=== PATIENT | female | born 1985 | race Caucasian/White ===

== ENCOUNTER → 2020-08-22 15:35 | Outpatient (CLI) | payer OTHER, SELFPAY ==
--- NOTE | 2020-08-22 | DI.CT.S_ITS ---
PROCEDURE: CT SINUS SCREEN WO CON INDICATIONS: CHRONIC PANSINUSITIS TECHNIQUE: Noncontrast 3.0 mm axial images acquired from the frontal sinuses to the mid-sella, with coronal and sagittal reformats. For radiation dose reduction, the following was used: automated exposure control, adjustment of mA and/or kV according to patient size. COMPARISON: None. FINDINGS: Image quality: Excellent. Maxillary Sinuses: No bony remodeling or destruction. Sinuses are clear. Ethmoid Air Cells: No bony remodeling or destruction. Sinuses are clear. Sphenoid Sinuses: No bony remodeling or destruction. Sinuses are clear. Frontal Sinuses: No bony remodeling or destruction. Sinuses are clear. Ostiomeatal Complexes: Ostiomeatal complexes are patent, yet there constitutionally narrowed. [place] air cells are seen, left worse than right. Miscellaneous: Visualized intra-orbital contents are normal. There are bilateral anuj bullosa is seen. There is mild to moderate rightward nasal septal deviation. IMPRESSION: No significant active paranasal sinus disease can be seen. Constitutionally narrowed ostiomeatal complexes, with [place] air cells, left worse than right. Bilateral anuj bullosa can be seen. There is mild to moderate rightward nasal septal deviation. Dictated by: Asad Yanez M.D. on 08/22/2020 at 15:15 Approved by: Asad Yanez M.D. on 08/22/2020 at 15:16
== END ==
PROVIDERS: Referring Provider Otolaryngology; Visit Provider Otolaryngology
DX: J32.4 Chronic pansinusitis (principal); J34.2 Deviated nasal septum
CPT/HCPCS: 70486

== ENCOUNTER 2021-04-06 14:38 | Emergency (ER) | payer OTHER, SELFPAY ==
[2021-04-06 14:45] VITALS: BP 124/72; PULSE 97; RESP 18; TEMP 36.8; O2SAT 100; BMI 21.9
--- NOTE | 2021-04-06 14:51 | ED.URI ---
HPI - URI/Sore Throat General Chief Complaint: Chest Pain Stated Complaint: covid+; chest pain, productive cough-yellow/blood Time Seen by Provider: 04/06/21 14:43 History of Present Illness HPI Narrative: 36-year-old female presents to the emergency department with known COVID infection after testing positive 2 days ago complaining of productive cough, pain with deep inspiration, tingling in total and muscle aches. She denies any history of blood clot, states that she is unvaccinated for COVID and develop symptoms last week. She denies fever but endorses frequent cough. States that she had some yellow sputum with streaks of blood in after a coughing episode. She denies any chance of . Denies any wheezing, difficulty breathing, difficulty taking full breath, chest tightness, syncope, dizziness, dehydration, nausea vomiting, diarrhea. Patient has a history of asthma, states she used her nebulizer this morning and it helped, is allergic to amoxicillin, takes sertraline, albuterol, Singulair, and Adderall daily. Related Data Previous Rx's Medication Instructions Recorded albuterol sulfate 2.5 mg (3 mL) INHALATION Q8H PRN 04/06/21 #75 ml Review of Systems Review of Systems Narrative: General: denies fever, chills, malaise, sweats, fatigue Head/Neck: denies headache, neck pain, dizziness Eyes: denies visual changes, eye pain Cardio: Endorses chest pain with deep inspiration, denies palpitations, edema Respiratory: denies dyspnea, endorses frequent occasionally productive cough, denies orthopnea and wheezing GI: denies abdominal pain, nausea, vomiting, or diarrhea : denies dysuria, hematuria, urinary retention, frequency or incontinence MSK: denies joint pain, muscle weakness Skin: denies rash, itching, skin lesions or other Neuro: denies numbness, tingling Patient History Social History Smoking Status: Never smoker Exam Narrative Exam Narrative: Independently reviewed vitals signs and nursing notes. General: Cooperative, comfortable, in no acute distress, well developed and well groomed Head/Neck: Normal visual inspection and supple, atraumatic, no JVD or lymphadenopathy. Normal facial exam Eyes: Pupils equal round and reactive, EOMI, conjunctiva normal, no scleral icterus or injections Nose: External nose normal, nares patent, no rhinorrhea, without purulent drainage Mouth/Throat: uvula midline, moist mucus membranes Cardio: Regular rate and rhythm, no peripheral edema, warm extremities Respiratory: Normal respiratory effort, able to speak in complete sentences without audible wheezing, stridor, or rales. No retractions. No adventitious breath sounds, equal excursions. GI: Abdomen soft, nontender to palpation x4 quadrants, nondistended, no masses or exquisite tenderness with exam, no flank tenderness MSK: Moves all extremities, neurovascularly intact Skin: Normal capillary refill, no rash Neuro: Normal speech and cognition, normal gait, A&O x3, tone normal, moves all extremities Psych: Mental status is grossly normal, speech is clear, congruent mood, normal affect Initial Vital Signs Initial Vital Signs: Vital Signs Temperature 98.2 F 04/06/21 14:45 Pulse Rate 97 H 04/06/21 14:45 Respiratory Rate 18 04/06/21 14:45 Blood Pressure 124/72 04/06/21 14:45 Pulse Oximetry 100 04/06/21 14:45 Course Orders Ordered: ED Orders 04/06/21 14:54 XR chest 1V Stat 04/06/21 14:56 EKG-12 Lead Stat Vital Signs Vital signs: Vital Signs - 8 hr 04/06/21 14:45 Temperature 98.2 F Pulse Rate 97 H Respiratory Rate 18 Blood Pressure 124/72 Pulse Oximetry 100 MDM - URI/Sore Throat Imaging Data Chest x-ray: Radiologist's Impression: PROCEDURE:? XR CHEST 1V ? INDICATIONS:? COVID, cough, hx asthma ? TECHNIQUE:? One view of the chest was acquired.? ? COMPARISON:? None. ? FINDINGS:? ? Surgical changes and devices:? None.? ? Lungs and pleura:? Lungs are clear.? No pleural effusions or pneumothorax.? ? Mediastinum:? Mediastinal contours appear normal.? Heart size is normal.? ? Bones and chest wall:? No suspicious bony lesions.? Overlying soft tissues appear unremarkable.? IMPRESSION:? No definite infiltrates are seen.? ? If there is clinical concern for a developing pulmonary process, a short-term followup chest series (with PA and lateral views, performed in deep inspiration) is suggested for further evaluation. ? ? ? Dictated by: Asad Yanez M.D. on 04/06/2021 at 14:13 ? ? Approved by: Asad Yanez M.D. on 04/06/2021 at 14:13 ? ECG Data Interpretation: EKG reviewed by myself and Dr. Prachi Khalil and reveals normal sinus rhythm at [77] bpm with regular axis and intervals. No STEMI, ST segment changes, arrhythmia, or acute ischemic changes. Normal axis, no ectopy. MDM Narrative Medical decision making narrative: 36-year-old female with past medical history of asthma presents to the emergency department with chief complaint of COVID infection and cough with chest pain during deep inspiration. Patient tested positive for COVID 2 days ago, she is unvaccinated. COVID (+) on day 3 of symptoms without hypoxia, respiratory distress, dehydration, or focal exam to suggest secondary bacterial infection. Discussed CDC guidelines for quarantine, mask wearing, physical distancing, and infection prevention measures such as frequent handwashing. Chest x-ray without any definite pulmonary infiltrates, lungs are clear without effusions or pneumothorax. EKG normal sinus rhythm without ectopy or tachycardia, no ST changes, or [id number] to suggest pulmonary embolism. Recommend supportive treatments: Tylenol/Motrin as needed for pain/fever. OTC decongestant medications and/or antihistamines for symptomatic relief. Maintain adequate fluid intake. Follow-up with PCP as directed. Return to clinic/ER instructions discussed for new, not improving, or worsening symptoms. All questions answered. Discharge Plan Departure Patient Disposition: Home Clinical Impression: COVID-19 Instructions: DI for Atypical Chest Pain, DI for COVID-19 (Suspected or Confirmed ) Activity Restrictions/Additional Instructions: *You have been diagnosed with COVID-19. Please continue to take your Singulair and albuterol as needed for your asthma symptoms. Albuterol does not have any benefit to COVID so please only use it if you have chest tightness or shortness of breath related to asthma. You may take Claritin daily if you have a runny nose, Mucinex can be helpful to thin phlegm to make it easier to cough up, take hot showers to help with muscle aches, stay hydrated with plenty of fluids, you can try fluticasone for Sudafed decongestant to reduce your congestion if that is a problem for you. That may in turn help reduce your cough and any postnasal drip that will turn into phlegm. Please use Tylenol or ibuprofen as needed for pain, aches and fever. Your chest x-ray is reassuring, there are no signs of a bacterial or viral pneumonia or acute cardiopulmonary process. Your oxygen was 100% throughout your stay, and your heart rate is normal which is also reassuring Please follow-up with your primary care provider after you're better or if you are not improving. I hope you start feeling better soon, treat your symptoms as they come, you may need to increase your rest to help yourself get better. Wishing you luck with your small children. *What to do: *Please continue to take your regular medications as directed. [x] New medication prescriptions sent to your pharmacy: [[facility] ] [ ] New medication written as a paper prescription [ ] No new medications given *Please follow up with your primary care provider in 2-3 days, call for an appointment. Let them know you were seen in the Emergency Department and that we ask that you be seen in follow up. We will electronically transmit a record of today's note if your PCP is in our system *If you do not have a primary care provider please contact the [facility] Resource line at [phone]. They will ask some questions about your medical history and help get you set up with a doctor in the community. *Return to Emergency Department if you should have any new, worsening or concerning symptoms, such as [fever greater than 101F, chills, worsening pain, persistent vomiting or other bothersome symptoms] Prescriptions: New albuterol sulfate 2.5 mg /3 mL (0.083 %) solution for nebulization 2.5 mg inhalation Q8H PRN (Reason: shortness of breath or wheezing) Qty: 75 0RF Referrals: Meng Sears DO [Primary Care Provider] -
--- NOTE | 2021-04-06 14:54 | DI.RAD.S_ITS ---
PROCEDURE: XR CHEST 1V INDICATIONS: COVID, cough, hx asthma TECHNIQUE: One view of the chest was acquired. COMPARISON: None. FINDINGS: Surgical changes and devices: None. Lungs and pleura: Lungs are clear. No pleural effusions or pneumothorax. Mediastinum: Mediastinal contours appear normal. Heart size is normal. Bones and chest wall: No suspicious bony lesions. Overlying soft tissues appear unremarkable. IMPRESSION: No definite infiltrates are seen. If there is clinical concern for a developing pulmonary process, a short-term followup chest series (with PA and lateral views, performed in deep inspiration) is suggested for further evaluation. Dictated by: Asad Yanez M.D. on 04/06/2021 at 14:13 Approved by: Asad Yanez M.D. on 04/06/2021 at 14:13
[2021-04-06 15:42] VITALS: BP 105/67; PULSE 78; RESP 18; O2SAT 100
== END 2021-04-06 15:43 | disposition home or self-care (01) ==
PROVIDERS: Emergency Provider Nurse Practitioner Critical Care Medicine; PCP Family Medicine
DX: U07.1 COVID-19 (principal); R07.9 Chest pain, unspecified
CPT/HCPCS: 71045; 93005; 99283

== ENCOUNTER 2022-03-16 15:01 | Emergency (ER) | payer OTHER, SELFPAY ==
[2022-03-16 15:09] VITALS: BP 106/79; PULSE 96; RESP 20; TEMP 37; O2SAT 100; BMI 21.5
[2022-03-16 16:10] VITALS: BP 113/70; PULSE 86; RESP 18; O2SAT 100
--- NOTE | 2022-03-16 16:15 | ED.GENADULT ---
HPI - General Adult General Chief complaint: Dizziness Stated complaint: Vertigo/Pain Left Side Time Seen by Provider: 03/16/22 15:39 Source: patient Mode of arrival: Ambulatory Limitations: no limitations History of Present Illness HPI narrative: Patient is a 36-year-old female who has been having issues with vertigo off and on for the past several months. She is seen her primary doctor. She also has a history of migraine headaches. She has talked with her neurologist about the vertigo and also the migraines. She has muscle relaxers at home that the neurologist thought maybe contributing to his symptoms because her headache seen at the base of her head. She also talked with the primary doctor. Last week she went to her primary doctor. Had a OMT adjustment by her primary doctor. Since that time she has had some pain left side of her neck and also continued vertigo. She does have fullness in her ears. She also has a slight headache. Has some tingling down her left arm. No chest pain. No shortness of breath. No vision changes. Not on anticoagulation. No specific trauma. Does not take any specific vertigo medications. Related Data Previous Rx's Medication Instructions Recorded albuterol sulfate 2.5 mg/3 mL 2.5 mg (3 mL) inhalation Q8H PRN 04/06/21 (0.083 %) solution for nebulization shortness of breath or wheezing #75 mL cyclobenzaprine 10 mg tablet 10 mg PO TID PRN muscle spasm #21 03/16/22 tabs meclizine 25 mg tablet 25 mg PO BID PRN dizziness #14 tabs 03/16/22 Allergies Allergy/AdvReac Type Severity Reaction Status Date / Time amoxicillin Allergy Verified 03/16/22 15:17 Review of Systems Constitutional Constitutional: Reports system reviewed and no additional complaints, except as documented Eyes Eyes: Reports system reviewed and no additional complaints, except as documented ENT Ears, Nose, Mouth, and Throat: Reports system reviewed and no additional complaints, except as documented Cardiovascular Cardiovascular: Reports system reviewed and no additional complaints, except as documented Respiratory Respiratory: Reports system reviewed and no additional complaints, except as documented Integumentary/Breasts Skin/Breast: Reports system reviewed and no additional complaints, except as documented Neurologic Neurologic: Reports system reviewed and no additional complaints, except as documented Hematologic/Lymphatic On Anticoagulants: No Patient History Social History Smoking Status: Never smoker Smoking Status: Never smoker alcohol intake frequency: 0-2 drinks per day Substance Use Type: does not use Exam Initial Vital Signs Initial Vital Signs: Vital Signs Temperature 98.6 F 03/16/22 15:09 Pulse Rate 96 H 03/16/22 15:09 Respiratory Rate 20 03/16/22 15:09 Blood Pressure 106/79 03/16/22 15:09 Pulse Oximetry 100 03/16/22 15:09 Oxygen Delivery Method 03/16/22 15:09 Const General: cooperative, comfortable, well groomed and No ill appearing HENMT Head: normal to inspection and normocephalic Ears: TM's normal bilaterally and EAC's normal Face and sinus: normal facial exam Eyes Pupils: PERRL Resp Effort & Inspection: normal respiratory effort Cardio Rate: regular rate Rhythm: regular rhythm Back/Spine/Pelvis Other: Patient with obvious fullness of the musculature of left upper shoulder to include the trapezius and levator scapulae. This is the area where she is having tenderness to palpation. It does extend into the occipital muscles as well. Skin General: no rashes or lesions noted Neuro General: patient alert, patient awake, patient oriented x3 and moves all extremities Cognition: normal cognition Speech: speech normal Gait: normal gait Extrem General: normal to inspection and capillary refill normal Course Vital Signs Vital signs: Vital Signs - 8 hr 03/16/22 15:09 03/16/22 16:10 Temperature 98.6 F Pulse Rate 96 H 86 Respiratory Rate 20 18 Blood Pressure 106/79 113/70 Pulse Oximetry 100 100 Oxygen Delivery Method Room Air Medical Decision Making [facility] Narrative Medical decision making narrative: Patient has an obvious fullness to the left-sided trapezius muscle and the left shoulder girdle. I suspect that the tingling down her left arm is related to the inflammation of the cervical plexus nerves going down her left arm. Also has tenderness up the left-sided cervical region. Unsure if this is because of the OMT treatment but I do suspect that it is the cause of her presenting symptoms today. Low suspicion for CVA/TIA. Will discharge home with muscle relaxers. We also discussed other conservative measures to include heat ice and massage. Patient is afebrile. No indication for radiologic studies. She was given strict return precautions. She expressed understanding and agreement. Discharge Plan Departure Patient Disposition: Home Clinical Impression: Cervical muscle strain, Vertigo Instructions: DI for Vertigo Activity Restrictions/Additional Instructions: I do recommend you continue to take all your medications as directed. I also recommend that you use very conservative measures such as heat and ice and massage to the left side of your neck. You may benefit from following up with ear nose and throat and also physical therapy. Return to the emergency department for new symptoms. Prescriptions: New meclizine 25 mg tablet 25 mg PO BID PRN (Reason: dizziness) Qty: 14 0RF cyclobenzaprine 10 mg tablet 10 mg PO TID PRN (Reason: muscle spasm) Qty: 21 0RF No Action albuterol sulfate 2.5 mg /3 mL (0.083 %) solution for nebulization 2.5 mg inhalation Q8H PRN (Reason: shortness of breath or wheezing) Qty: 75 0RF Referrals: Meng Sears DO [Primary Care Provider] - Stand Alone Forms: Patient Portal/API
== END 2022-03-16 16:30 | disposition home or self-care (01) ==
PROVIDERS: Emergency Provider Emergency Medicine; PCP Family Medicine
DX: R42 Dizziness and giddiness (principal); S16.1XXA Strain of muscle, fascia and tendon at neck level, initial encounter
CPT/HCPCS: 99281